=== PATIENT | female | born 1990 | race Caucasian/White ===

== ENCOUNTER 2021-02-03 20:36 | Emergency (ER) | payer OTHER ==
[2021-02-03] MEDS ORDERED: COLACE 100MG C100 MG PO (22:56)
[2021-02-03] MEDS ORDERED: ADULT GLYCERIN1 EACH PR (22:56)
[2021-02-03] MEDS ORDERED: CITRATE OF MAG296 ML PO (22:56)
== END 2021-02-03 23:10 | disposition home or self-care (01) ==
LOC: ER1 20:36
DX: K59.00 Constipation, unspecified (principal)
CPT/HCPCS: 99283